=== PATIENT | female | born 1980 | race Caucasian/White ===

== ENCOUNTER 2016-08-22 13:54 | Emergency (ER) | payer MEDICAID, OTHER ==
[~2016-08-22] VITALS: Ht 149.9 cm; Wt 57.5 kg
[~2016-08-22 13:54] MED LIST: CLON0.5T PO; ESTR2TAB PO; NAPR500 OR; ONDA1TAB16 PO; PANT20 PO; PROC1TAB8 OR
[2016-08-22 14:15] VITALS: BP 119/71; PULSE 85; RESP 18; TEMP 98.2; O2SAT 98
[2016-08-22] MEDS ORDERED: SODIUM CHLOR 0.9% 1000 ML INJ 1,000 ML IV ONE ×2 (14:19→16:00)
[2016-08-22 14:25] VITALS: O2SAT 98
[2016-08-22] MEDS ORDERED: CLON1 PO (14:25)
[2016-08-22] MEDS ORDERED: LACTCAP8 PO (14:25)
[2016-08-22] MEDS ORDERED: ESTR.3 PO (14:25)
[2016-08-22] MEDS ORDERED: ACETAMINOPHEN 325 MG TAB PO ONE (14:30)
[2016-08-22] MEDS ORDERED: PROCHLORPERAZINE INJ 10 MG/2 ML VIAL IVP ONE (14:30)
[2016-08-22] MEDS ORDERED: MORPHINE SULFATE 4 MG/ML INJ IV PUSH ONE (14:30)
[2016-08-22] MEDS ORDERED: diphenhydrAMINE HCL 50 MG/ML VIAL IVP ONE (14:30)
[2016-08-22] MEDS ORDERED: SODIUM CHLORIDE 0.9% FLUSH 5 ML FLUSH IVF PRN (14:30)
--- NOTE | 2016-08-22 14:42 | RADHPO ---
EXAM DATE/TIME: 08/22/2016 14:32 [facility] COMPARISON: CT BRAIN W/O CONTRAST, April 23, 2014, 19:21. INDICATIONS : Headache behind her left eye. Difficulty speaking. Blurred vision. RADIATION DOSE: 64.27 CTDIvol (mGy) MEDICAL HISTORY : Seizures. Hypothyroidism. Migraines. SURGICAL HISTORY : Tubal ligation. section.Hysterectomy.Cholecystectomy. ENCOUNTER: Initial ACUITY: 1 day PAIN SCALE: 7/10 LOCATION: Left cranial TECHNIQUE: Multiple contiguous axial images were obtained of the head. Using automated exposure control and adj ustment of the mA and/or kV according to patient size, radiation dose was kept as low as reasonably a chievable to obtain optimal diagnostic quality images. FINDINGS: CEREBRUM: The ventricles are normal for age. No evidence of midline shift, mass lesion, hemorrhage or acute in farction. No extra-axial fluid collections are seen. POSTERIOR FOSSA: The cerebellum and brainstem are intact. The 4th ventricle is midline. The cerebellopontine angle i s unremarkable. EXTRACRANIAL: The visualized portion of the orbits is intact. SKULL: The calvaria is intact. No evidence of skull fracture. CONCLUSION: Normal examination. Zaid Fernández Jr., MD on August 22, 2016 at 14:39 Board Certified Radiologist. This report was verified electronically.
--- NOTE | 2016-08-22 14:47 | PD ---
HPI Chief Complaint: Neuro Symptoms/ Deficits Time Seen by Provider: 14:06 Travel History International Travel<30 days: No Contact w/Intl Traveler<30days: No Traveled to known affect area: No History of Present Illness HPI The patient is a 36-year-old female who presents emergency department for acute neurologic problems and headache. The patient has a history of migraines in the past with acute neurologic deficits including blurry vision and /or loss of vision. The patient was followed by a neurologist, however, cannot recall the name. The patient states her symptoms started approximately 1 PM earlier today when she suddenly felt like she could see diagonal lines in the right eye. The patient then states she has slightly blurry vision of the right eye and then developed right facial numbness and right arm numbness. The patient states the numbness then traveled to the left aspect of the face into the hands bilaterally. The patient did developed a left-sided headache with photophobia and mild nausea, but denies any vomiting. The patient has had symptoms similar to this in the past secondary to her migraines. The patient denies any weakness or numbness of the lower extremities. The patient does take estrogen, but denies any known history of emboli or thrombi. PFSH Past Medical History Anxiety: Yes Cancer: No Cardiovascular Problems: No High Cholesterol: Yes Chest Pain: Yes Diabetes: No Diminished Hearing: No Endocrine: Yes Gastrointestinal Disorders: No Glaucoma: No Genitourinary: Yes (PELVIC KIDNEY) Headaches: Yes Hepatitis: No Hiatal Hernia: No Hypertension: No Immune Disorder: No Medical other: No Musculoskeletal: No Neurologic: Yes (HX SEIZURES (YOUTH), SYNCOPE, MIGRAINES) Psychiatric: Yes (PANIC ATTACKS, CLAUSTRAPHOBIA) Reproductive: No Respiratory: No Immunizations Current: Yes Migraines: Yes Seizures: Yes (as a child) Thyroid Disease: Yes ?: Not : 2 Para: 2 Ovarian Cysts: Yes (SURGICALLY REMOVED) Tubal Ligation: Yes Past Surgical History Abdominal Surgery: Yes (EXC. [place] ABD (BENIGN), APPY, ING. HERNIA REP., ADHESIONS REMOVED) AICD: No Cardiac Surgery: No Section: Yes (X2) Cholecystectomy: Yes Ear Surgery: No Endocrine Surgery: No Eye Surgery: No Genitourinary Surgery: No Gynecologic Surgery: Yes (UTERINE ABLATION;OVARIAN CYSTECTOMY, TAHBSO, C SECTION X2) Hysterectomy: Yes Joint Replacement: No Neurologic Surgery: No Oral Surgery: Yes (WISDOM TEETH EXTRACTION) Pacemaker: No Thoracic Surgery: No Other Surgery: Yes (hernia repair as a child) Social History Alcohol Use: No Tobacco Use: No (07/28 PPD) Substance Use: No Allergies-Medications (Allergen,Severity, Reaction): Coded Allergies: Sulfa (Verified Allergy, Mild, Hives, 08/22/16) Reglan (Verified Adverse Reaction, Mild, "MUSCLE TWITCHING", 08/22/16) Reported Meds & Prescriptions Reported Meds & Active Scripts Active Reported Klonopin (Clonazepam) 1 Mg Tab 1 Mg PO BID Probiotic (Lactobacillus Acidophilus) 1 Cap Cap 1 Cap PO TIDAC Premarin (Estrogens Conjugated) 0.3 Mg Tab 0.3 Mg PO DAILY Review of Systems Except as stated in HPI: all other systems reviewed are Neg General / Constitutional: No: Fever Eyes: Positive: Blurred Vision, Photophobia HENT: Positive: Headaches Cardiovascular: No: Chest Pain or Discomfort Respiratory: No: Shortness of Breath Gastrointestinal: Positive: Nausea, No: Vomiting, Abdominal Pain Neurologic: Positive: Headache, Paresthesia, Sensory Disturbance, Other ( stuttering speech), No: Dizziness, Slurred Speech Physical Exam Narrative GENERAL: Awake, alert, nontoxic-appearing 36-year-old female who appears her stated age and is in no acute respiratory distress. SKIN: Warm and dry. HEAD: Atraumatic. Normocephalic. EYES: Pupils equal and round. Pupils are 4 mm bilateral and reactive. EOMs are intact. Visual orellana are symmetric. Patient is able to see fingers at a distance of 2 feet without difficulty. ENT: No nasal bleeding or discharge. Mucous membranes pink and moist. NECK: Trachea midline. No JVD. CARDIOVASCULAR: Regular rate and rhythm. No murmur appreciated. RESPIRATORY: No accessory muscle use. Clear to auscultation. Breath sounds equal bilaterally. GASTROINTESTINAL: Abdomen soft, non-tender, nondistended. Hepatic and splenic margins not palpable. MUSCULOSKELETAL: No obvious deformities. No clubbing. No cyanosis. No edema. NEUROLOGICAL: Awake and alert. Smile is symmetric. Patient does not have any dysarthria, however, has stuttering speech pattern. No drift of the upper or lower extremities. Sensation is decreased bilaterally on the face but is symmetric. Sensation is intact and symmetric bilaterally in the arms and legs. Oriented 4. Follows as without difficulty. Ahvn-vo-ysbv is normal. Finger to nose is normal. PSYCHIATRIC: Appropriate mood and affect; insight and judgment normal. Data Data Last Documented VS Vital Signs Date Time Temp Pulse Resp B/P Pulse Ox O2 Delivery O2 Flow Rate FiO2 08/22/16 14:25 98 Room Air 08/22/16 14:15 98.2 85 18 119/71 Orders Complete Blood Count With Diff (08/22/16 14:19) Comprehensive Metabolic Panel (08/22/16 14:19) Westergren Sedimentation Rate (08/22/16 14:19) C-Reactive Protein (Crp) (08/22/16 14:19) Ct Brain W/O Iv Contrast(Rout) (08/22/16 14:19) Ecg Monitoring (08/22/16 14:19) Iv Access Insert/Monitor (08/22/16 14:19) Oximetry (08/22/16 14:19) Sodium Chloride 0.9% Flush (Ns Flush) (08/22/16 14:30) Acetaminophen (Tylenol) (08/22/16 14:30) Prochlorperazine Inj (Compazine Inj) (08/22/16 14:30) Diphenhydramine Inj (Benadryl Inj) (08/22/16 14:30) Sodium Chlor 0.9% 1000 Ml Inj (Ns 1000 M (08/22/16 14:19) Morphine Inj (Morphine Inj) (08/22/16 14:30) Aspirin (Aspirin) (08/22/16 15:00) Ketorolac Inj (Toradol Inj) (08/22/16 15:00) Labs Laboratory Tests Test 08/22/16 15:00 White Blood Count 8.4 TH/MM3 Red Blood Count 5.17 MIL/MM3 Hemoglobin 15.8 GM/DL Hematocrit 47.7 % Mean Corpuscular Volume 92.4 FL Mean Corpuscular Hemoglobin 30.7 PG Mean Corpuscular Hemoglobin 33.2 % Concent Red Cell Distribution Width 12.5 % Platelet Count 277 TH/MM3 Mean Platelet Volume 8.2 FL Neutrophils (%) (Auto) 65.0 % Lymphocytes (%) (Auto) 25.8 % Monocytes (%) (Auto) 7.5 % Eosinophils (%) (Auto) 1.0 % Basophils (%) (Auto) 0.7 % Neutrophils # (Auto) 5.4 TH/MM3 Lymphocytes # (Auto) 2.2 TH/MM3 Monocytes # (Auto) 0.6 TH/MM3 Eosinophils # (Auto) 0.1 TH/MM3 Basophils # (Auto) 0.1 TH/MM3 CBC Comment DIFF FINAL Differential Comment Sodium Level 141 MEQ/L Potassium Level 3.9 MEQ/L Chloride Level 107 MEQ/L Carbon Dioxide Level 26.2 MEQ/L Anion Gap 8 MEQ/L Blood Urea Nitrogen 14 MG/DL Creatinine 0.88 MG/DL Estimat Glomerular Filtration 72 ML/MIN Rate Random Glucose 83 MG/DL Calcium Level 8.4 MG/DL Total Bilirubin 0.3 MG/DL Aspartate Amino Transf 20 U/L (AST/SGOT) Alanine Aminotransferase 26 U/L (ALT/SGPT) Alkaline Phosphatase 74 U/L Total Protein 7.0 GM/DL Albumin 3.5 GM/DL MDM Medical Decision Making Medical Screen Exam Complete: Yes Emergency Medical Condition: Yes Medical Record Reviewed: Yes Differential Diagnosis Differential diagnosis includes complicated migraine, intracranial hemorrhage, subdural hemorrhage, subarachnoid hemorrhage, seizure, CVA, TIA, multiple sclerosis. Narrative Course IV was established, labs are drawn and sent, and the patient was placed on cardiac telemetry monitoring and continuous pulse oximetry monitoring. CT of the brain was ordered. I do not believe the patient is having an acute CVA/TIA , she had acute focal deficits which traveled from the right side, than the left side, and then she developed a headache with photophobia. Patient was sent to CT to rule out intracranial hemorrhage, was also administered pain medications for migraine. The patient's stroke scale would be 0, she does have decreased sensation per her report to the face but is bilateral and symmetric. Patient would not be a candidate for TPA. CT of the brain was unremarkable. The patient was reevaluated, her headache had significantly improved and her symptoms had resolved. Patient does state she's had similar symptoms in the past, but when her headache improves, her symptoms resolved. Patient will be discharged home on Fioricet and is advised to follow-up with her neurologist once again. Diagnosis Primary Impression: Complicated migraine Patient Instructions: Narcotic given in the ED, General Instructions Additional Instructions: Follow-up with your neurologist. Return if symptoms worsen or progress. Med/Other Pt SpecificInfo: Prescription(s) given Scripts Perqnoundo-Ohmchamxllmxx-Qbdzrmst (Fioricet)50-300-40 Mg Cap1 Cap PO Q4H PRN ( HEADACHE) #15 CAP Ref 0 Prov:Tree Moore MD 08/22/16 Disposition: 01 DISCHARGE HOME Condition: Stable Tree Moore MD Aug 22, 2016 14:47
[2016-08-22] MEDS ORDERED: KETOROLAC TROMETHAMINE 30 MG/ML (IVP) VIAL IV PUSH ONE (15:00)
[2016-08-22] MEDS ORDERED: ASPIRIN 325 MG TAB PO ONE (15:00)
[2016-08-22 15:23] LABS: AUTOMATED NEUTROPHIL # 5.4 TH/MM3 (1.8-7.7); BASOPHIL # 0.1 TH/MM3 (0-0.2); BASOPHIL % 0.7 % (0.0-2.0); EOSINOPHIL # 0.1 TH/MM3 (0-0.4); HEMATOCRIT 47.7 % (35.0-46.0); LYMPH % 25.8 % (9.0-44.0); LYMPHOCYTE # 2.2 TH/MM3 (1.0-4.8); MEAN CELL VOLUME 92.4 FL (80.0-100.0); MEAN CORPUSCULAR HEMOGLOBIN 30.7 PG (27.0-34.0); MEAN CORPUSCULAR HGB CONC 33.2 % (32.0-36.0); MONO % 7.5 % (0.0-8.0); PLATELET COUNT 277 TH/MM3 (150-450); RED BLOOD COUNT 5.17 MIL/MM3 (4.00-5.30); RED CELL DISTRIBUTION WIDTH 12.5 % (11.6-17.2); WHITE BLOOD COUNT 8.4 TH/MM3 (4.0-11.0)
[2016-08-22 15:24] LABS: CHLORIDE 107 MEQ/L (98-107); POTASSIUM 3.9 MEQ/L (3.5-5.1); SODIUM (NA) 141 MEQ/L (136-145)
[2016-08-22 15:25] LABS: HEMO FLAGS DIFF FINAL
[2016-08-22 15:28] LABS: ANION GAP 8 MEQ/L (5-15); BICARBONATE 26.2 MEQ/L (21.0-32.0); BLOOD UREA NITROGEN 14 MG/DL (7-18)
[2016-08-22 15:31] LABS: ALT (GPT) 26 U/L (10-53); AST (GOT) 20 U/L (15-37); GLOMERULAR FILTRATION RATE 72 ML/MIN (>89)
[2016-08-22 15:32] LABS: TOTAL BILIRUBIN ADULT 0.3 MG/DL (0.2-1.0)
[2016-08-22 15:34] LABS: ALKALINE PHOSPHATASE 74 U/L (45-117)
[2016-08-22] MEDS ORDERED: BUTA1CAP PO (15:57)
== END 2016-08-22 17:14 | disposition home or self-care (01) ==
LOC: PHED 13:54
DX: G43.109 Migraine with aura, not intractable, without status migrainosus (principal)
CPT/HCPCS: 70450; 80053; 85025; 85652; 86140; 96361; 96374; 96375; 99284; J0780; J1200; J1885; J2270; J7030

== ENCOUNTER 2017-05-31 01:49 | Emergency (ER) | payer OTHER ==
[~2017-05-31] VITALS: Ht 149.9 cm; Wt 48.0 kg
[~2017-05-31 01:49] MED LIST changes: +BUTA1CAP PO; -CLON0.5T PO; +CLON1 PO; +ESTR.3 PO; -ESTR2TAB PO; +LACTCAP8 PO; -NAPR500 OR; -ONDA1TAB16 PO; -PANT20 PO; -PROC1TAB8 OR
[2017-05-31 01:56] VITALS: BP 132/85; PULSE 90; RESP 20; TEMP 97.9; O2SAT 99
[2017-05-31] MEDS ORDERED: CLON.5 PO (02:05)
[2017-05-31] MEDS ORDERED: RIZA10TA4 PO (02:05)
[2017-05-31] MEDS ORDERED: IMIT25TA PO (02:05)
[2017-05-31] MEDS ORDERED: SUMA6P SQ (02:07)
[2017-05-31] MEDS ORDERED: SODIUM CHLOR 0.9% 1000 ML INJ 1,000 ML IV ONE (02:20)
[2017-05-31] MEDS ORDERED: SODIUM CHLORIDE 0.9% FLUSH 10 ML FLUSH IVF PRN (02:30)
[2017-05-31] MEDS ORDERED: KETOROLAC TROMETHAMINE 30 MG/ML (IVP) VIAL IVP ONE (02:30)
[2017-05-31] MEDS ORDERED: PROCHLORPERAZINE INJ 10 MG/2 ML VIAL IVP ONE (02:30)
[2017-05-31] MEDS ORDERED: ONDANSETRON HCL 4 MG/2 ML VIAL IVP ONE (02:30)
[2017-05-31] MEDS ORDERED: diphenhydrAMINE HCL 50 MG/ML VIAL IVP ONE (02:30)
[2017-05-31 02:49] VITALS: RESP 16; O2SAT 96
--- NOTE | 2017-05-31 03:51 | PD ---
HPI Chief Complaint: Headache Time Seen by Provider: 02:06 Travel History International Travel<30 days: No Contact w/Intl Traveler<30days: No Traveled to known affect area: No History of Present Illness HPI 37-year-old female with history of complex migraines presents to the emergency department one of her typical migraines not responsive to Fioricet or Imitrex. Patient's had headache photophobia and nausea vomiting her typical aura and states she has complex migraines that can include vision loss weakness and strokelike symptoms although she does not report these at this time. Headache is present for approximately an hour and is typical of one of her migraines. No recent febrile illness or injury. No report of upper extremity lower extremity numbness tingling or weakness. PFSH Past Medical History Narrative Medical Migraine syncope seizure; nursing notes reviewed Anxiety: Yes Cancer: No Cardiovascular Problems: No High Cholesterol: Yes Chest Pain: Yes Diabetes: No Diminished Hearing: No Endocrine: Yes Gastrointestinal Disorders: No Glaucoma: No Genitourinary: Yes (PELVIC KIDNEY) Headaches: Yes Hepatitis: No Hiatal Hernia: No Hypertension: No Immune Disorder: No Musculoskeletal: No Neurologic: Yes (HX SEIZURES (YOUTH), SYNCOPE, MIGRAINES) Psychiatric: Yes (PANIC ATTACKS, CLAUSTRAPHOBIA) Reproductive: No Respiratory: No Immunizations Current: Yes Migraines: Yes Seizures: Yes (as a child) Thyroid Disease: Yes Tetanus Vaccination: < 5 Years Influenza Vaccination: No ?: Not : 2 Para: 2 Ovarian Cysts: Yes (SURGICALLY REMOVED) Tubal Ligation: Yes Past Surgical History Abdominal Surgery: Yes (EXC. [place] ABD (BENIGN), APPY, ING. HERNIA REP., ADHESIONS REMOVED) AICD: No Cardiac Surgery: No Section: Yes (X2) Cholecystectomy: Yes Ear Surgery: No Endocrine Surgery: No Eye Surgery: No Genitourinary Surgery: No Gynecologic Surgery: Yes (UTERINE ABLATION;OVARIAN CYSTECTOMY, TAHBSO, C SECTION X2) Hysterectomy: Yes Joint Replacement: No Neurologic Surgery: No Oral Surgery: Yes (WISDOM TEETH EXTRACTION) Pacemaker: No Thoracic Surgery: No Other Surgery: Yes (hernia repair as a child) Social History Alcohol Use: No Tobacco Use: No (1 PPD) Substance Use: No Allergies-Medications (Allergen,Severity, Reaction): Coded Allergies: Sulfa (Sulfonamide Antibiotics) (Unverified Allergy, Mild, Hives, 11/5/17) metoclopramide (Unverified Adverse Reaction, Mild, "MUSCLE TWITCHING", 05/31/17) Reported Meds & Prescriptions Reported Meds & Active Scripts Active Fioricet (Vuuatlbysn-Bngxvtfboplhf-Zkgkpvpw) 50-300-40 Mg Cap 1 Cap PO Q4H PRN Reported Imitrex Inj (Sumatriptan Succinate) 6 Mg/0.5 Ml Inj 6 Mg SQ ONCE PRN May repeat dose in 1 hour if needed. Rizatriptan Odt (Rizatriptan Benzoate) 10 Mg Tab 10 Mg PO Q4HR Klonopin (Clonazepam) 0.5 Mg Tab 0.5 Mg PO DAILY Review of Systems Except as stated in HPI: all other systems reviewed are Neg General / Constitutional: No: Fever, Chills Eyes: Positive: Photophobia HENT: Positive: Headaches, No: Neck Pain Cardiovascular: No: Chest Pain or Discomfort Respiratory: No: Shortness of Breath Gastrointestinal: Positive: Nausea, Vomiting Genitourinary: No: Flank Pain Musculoskeletal: No: Pain Skin: No Rash Neurologic: Positive: Headache, No: Weakness Psychiatric: No: Anxiety Hematologic/Lymphatic: No: Lymph Node Enlargement Physical Exam Narrative GENERAL: Well-developed well-nourished male in no acute distress no respiratory distress SKIN: Warm and dry. HEAD: Atraumatic. Normocephalic. EYES: Pupils equal and round. No scleral icterus. No injection or drainage. ENT: No nasal bleeding or discharge. Mucous membranes pink and moist. NECK: Trachea midline. No JVD. No meningismus, no neck rigidity. CARDIOVASCULAR: Regular rate and rhythm. RESPIRATORY: No accessory muscle use. Clear to auscultation. Breath sounds equal bilaterally. GASTROINTESTINAL: Abdomen soft, non-tender, nondistended. Hepatic and splenic margins not palpable. MUSCULOSKELETAL: Extremities without clubbing, cyanosis, or edema. No obvious deformities. NEUROLOGICAL: Awake and alert. No obvious cranial nerve deficits. Motor grossly within normal limits. Five out of 5 muscle strength in the arms and legs. Normal speech. PSYCHIATRIC: Appropriate mood and affect; insight and judgment normal. Data Data Last Documented VS Vital Signs Date Time Temp Pulse Resp B/P (MAP) Pulse Ox O2 Delivery O2 Flow Rate FiO2 05/31/17 04:16 05/31/17 03:58 91 16 99 Room Air 05/31/17 01:56 97.9 Orders Orders Ecg Monitoring (05/31/17 02:20) Iv Access Insert/Monitor (05/31/17 02:20) Oximetry (05/31/17 02:20) Sodium Chloride 0.9% Flush (Ns Flush) (05/31/17 02:30) Ketorolac Inj (Toradol Inj) (05/31/17 02:30) Ondansetron Inj (Zofran Inj) (05/31/17 02:30) Prochlorperazine Inj (Compazine Inj) (05/31/17 02:30) Diphenhydramine Inj (Benadryl Inj) (05/31/17 02:30) Sodium Chlor 0.9% 1000 Ml Inj (Ns 1000 M (05/31/17 02:20) Ed Discharge Order (05/31/17 04:01) MDM Medical Decision Making Medical Screen Exam Complete: Yes Emergency Medical Condition: Yes Medical Record Reviewed: Yes Differential Diagnosis Migraine headache, cluster headache, tension headache, ICH Narrative Course Patient with known history of migraine/complex migraine headache presents after headache not responding to her typical outpatient regimen of short AND Imitrex; no recent injury as which presentation onset intensity character of her headache. Patient given IV access bolus liter of normal saline 30 mg IV Zofran 4 mg IV Compazine 10 mg IVP and Benadryl per 5 mg IV. On reassessment patient resting comfortably At 4 AM patient is stable for outpatient management states pain was 9/10 intensity has decreased 4/10 in intensity is desirous to be discharged home. Patient encouraged to follow-up with her primary care provider return to the emergency department as needed Diagnosis Primary Impression: Migraine headache Qualified Codes: G43.109 - Migraine with aura, not intractable, without status migrainosus Referrals: Primary Care Physician call for appointment Patient Instructions: General Instructions Additional Instructions: Increase fluid hydration Follow-up with primary care provider Return to the emergency department for any concerns or change in condition Continue chronic medications as chronically prescribed Med/Other Pt SpecificInfo: No Change to Meds Disposition: 01 DISCHARGE HOME Condition: Stable Shelby Lyons MD May 31, 2017 03:51
[2017-05-31 03:58] VITALS: BP 109/60; PULSE 91; RESP 16; O2SAT 99
== END 2017-05-31 04:22 | disposition home or self-care (01) ==
LOC: PHED 01:49
DX: G43.109 Migraine with aura, not intractable, without status migrainosus (principal); E07.9 Disorder of thyroid, unspecified; E78.00 Pure hypercholesterolemia, unspecified; Z87.448 Personal history of other diseases of urinary system; Z86.69 Personal history of other diseases of the nervous system and sense organs; Z86.59 Personal history of other mental and behavioral disorders
CPT/HCPCS: 96361; 96374; 96375; 99284; J0780; J1200; J1885; J2405; J7030

== ENCOUNTER 2017-09-21 00:25 | Emergency (ER) | payer OTHER ==
[~2017-09-21] VITALS: Ht 149.9 cm; Wt 48.4 kg
[~2017-09-21 00:25] MED LIST changes: +CLON.5 PO; -CLON1 PO; -ESTR.3 PO; -LACTCAP8 PO; +RIZA10TA4 PO; +SUMA6P SQ
[2017-09-21 00:30] VITALS: BP 127/56; PULSE 104; RESP 16; TEMP 97.8; O2SAT 98
[2017-09-21] MEDS ORDERED: traMADol HCL 50 MG TAB PO ONE (00:45)
--- NOTE | 2017-09-21 00:47 | PD ---
HPI Chief Complaint: Right calf pain Time Seen by Provider: 00:45 Travel History International Travel<30 days: No Contact w/Intl Traveler<30days: No Traveled to known affect area: No History of Present Illness HPI 37-year-old female patient with injury to the right foot currently in move boots placed by podiatry, has had several days history of increased pain in the right calf. She was sent in for further evaluation for DVT. She denies any new injuries or any other issues. Modifying Factors: None Associated Signs & Symptoms: Right calf pain Risk Factors: right foot injury PFSH Past Medical History Anxiety: Yes Cancer: No Cardiovascular Problems: No High Cholesterol: Yes Chest Pain: Yes Diabetes: No Diminished Hearing: No Endocrine: Yes Gastrointestinal Disorders: No Glaucoma: No Genitourinary: Yes (PELVIC KIDNEY) Headaches: Yes Hepatitis: No Hiatal Hernia: No Hypertension: No Immune Disorder: No Musculoskeletal: No Neurologic: Yes (HX SEIZURES (YOUTH), SYNCOPE, MIGRAINES) Psychiatric: Yes (PANIC ATTACKS, CLAUSTRAPHOBIA) Reproductive: No Respiratory: No Immunizations Current: Yes Migraines: Yes Seizures: Yes (as a child) Thyroid Disease: Yes : 2 Para: 2 Ovarian Cysts: Yes (SURGICALLY REMOVED) Tubal Ligation: Yes Past Surgical History Abdominal Surgery: Yes (EXC. [place] ABD (BENIGN), APPY, ING. HERNIA REP., ADHESIONS REMOVED) AICD: No Cardiac Surgery: No Section: Yes (X2) Cholecystectomy: Yes Ear Surgery: No Endocrine Surgery: No Eye Surgery: No Genitourinary Surgery: No Gynecologic Surgery: Yes (UTERINE ABLATION;OVARIAN CYSTECTOMY, TAHBSO, C SECTION X2) Hysterectomy: Yes Joint Replacement: No Neurologic Surgery: No Oral Surgery: Yes (WISDOM TEETH EXTRACTION) Pacemaker: No Thoracic Surgery: No Other Surgery: Yes (hernia repair as a child) Social History Alcohol Use: No Tobacco Use: No (1 PPD) Substance Use: No Allergies-Medications (Allergen,Severity, Reaction): Coded Allergies: Sulfa (Sulfonamide Antibiotics) (Unverified Allergy, Mild, Hives, 09/21/17) metoclopramide (Unverified Adverse Reaction, Mild, "MUSCLE TWITCHING", ) Reported Meds & Prescriptions Reported Meds & Active Scripts Active Fioricet (Gaxnktczft-Srossulmhmosh-Geyrqchd) 50-300-40 Mg Cap 1 Cap PO Q4H PRN Reported Ibuprofen 600 Mg Tab 600 Mg PO Q6H PRN Ketorolac (Ketorolac Tromethamine) 10 Mg Tab 30 Mg PO TID Imitrex Inj (Sumatriptan Succinate) 6 Mg/0.5 Ml Inj 6 Mg SQ ONCE PRN May repeat dose in 1 hour if needed. Rizatriptan Odt (Rizatriptan Benzoate) 10 Mg Tab 10 Mg PO Q4HR Klonopin (Clonazepam) 0.5 Mg Tab 0.5 Mg PO DAILY Review of Systems Except as stated in HPI: all other systems reviewed are Neg Physical Exam Narrative GENERAL: Well-developed young female patient currently mild distress. Awake and oriented 3. SKIN: Focused skin assessment warm/dry. HEAD: Atraumatic. Normocephalic. EYES: Pupils equal and round. No scleral icterus. No injection or drainage. ENT: No nasal bleeding or discharge. Mucous membranes pink and moist. NECK: Trachea midline. No JVD. CARDIOVASCULAR: Regular rate and rhythm. No murmur appreciated. RESPIRATORY: No accessory muscle use. Clear to auscultation. Breath sounds equal bilaterally. GASTROINTESTINAL: Abdomen soft, non-tender, nondistended. Hepatic and splenic margins not palpable. EXTREMITIES: No clubbing, cyanosis, or edema. No joint tenderness, effusion, or edema noted. She is tender in the right foot midfoot area with no signs of ecchymosis. Neurovascularly intact. Right calf tenderness. Bilateral Homans sign negative. MUSCULOSKELETAL: No obvious deformities. No clubbing. No cyanosis. No edema. NEUROLOGICAL: Awake and alert. No obvious cranial nerve deficits. Motor grossly within normal limits. Normal speech. PSYCHIATRIC: Appropriate mood and affect; insight and judgment normal. Data Data Last Documented VS Vital Signs Date Time Temp Pulse Resp B/P (MAP) Pulse Ox O2 Delivery O2 Flow Rate FiO2 09/21/17 01:45 20 09/21/17 00:30 97.8 104 127/56 (79) 98 Orders Orders Tramadol (Ultram) (09/21/17 00:45) Us Leg Venous Doppler (09/21/17 00:45) Ed Discharge Order (09/21/17 02:07) MDM Medical Decision Making Medical Screen Exam Complete: Yes Emergency Medical Condition: Yes Medical Record Reviewed: Yes Differential Diagnosis Right calf pain: Calf strain versus DVT Narrative Course Ultrasound shows no signs of DVT. At this point, my plan would be to release the patient would follow-up to her wire coiler. Return for new issues as needed. The plan has been discussed with her and she states understanding. Diagnosis Primary Impression: Right leg swelling Disposition: 01 DISCHARGE HOME Condition: Stable SoonMelanie quinones MD Sep 21, 2017 00:47
[2017-09-21] MEDS ORDERED: KETO10 PO (01:10)
[2017-09-21] MEDS ORDERED: IBUP-232 PO (01:10)
[2017-09-21 01:45] VITALS: RESP 20
--- NOTE | 2017-09-21 01:58 | RADRPT ---
EXAM DATE/TIME: 09/21/2017 01:12 [facility] COMPARISON: No previous studies available for comparison. INDICATIONS : Right calf pain. MEDICAL HISTORY : Seizures. SURGICAL HISTORY : Appendectomy. Hysterectomy. section. Hernia repair. Adhesions removed. Uterine ablation. Ov salas cystectomy. Tubal ligation. ENCOUNTER: Initial ACUITY: 3 days PAIN SCORE: 4/10 LOCATION: Right leg. TECHNIQUE: Venous ultrasound of the leg was performed from the inguinal ligament to the proximal calf. Real-rajendra e, color Doppler and spectral tracing, compression and augmentation techniques were used. FINDINGS: There is normal compressibility of the deep venous system from the inguinal region to the proximal ca lf. No echogenic clot is seen in the lumen of the common femoral, femoral, popliteal, and posterior tibial veins. There is a normal response of the venous system to proximal and distal augmentation an d respiration. CONCLUSION: 1. No sonographic evidence for right lower extremity DVT. Fawad Causey MD on September 21, 2017 at 1:57 Board Certified Radiologist. This report was verified electronically.
[2017-09-21 02:39] VITALS: BP 118/74
== END 2017-09-21 02:13 | disposition home or self-care (01) ==
LOC: PHED 00:25
DX: M79.89 Other specified soft tissue disorders (principal); M79.661 Pain in right lower leg; F17.200 Nicotine dependence, unspecified, uncomplicated
CPT/HCPCS: 93971; 99284